=== PATIENT | female | born 1990 | race Caucasian/White ===

== ENCOUNTER 2017-07-02 19:30 | Outpatient (CLI) | payer OTHER | END 2017-07-02 19:31 | disposition home or self-care (01) | LOC: SLEEPLAB 19:30 | PROVIDERS: ATTEND Family Medicine | DX: G47.33 Obstructive sleep apnea (adult) (pediatric) (principal); G47.10 Hypersomnia, unspecified; G47.11 Idiopathic hypersomnia with long sleep time; G47.52 REM sleep behavior disorder | CPT/HCPCS: 95810 ==